=== PATIENT | male | born 1965 | race Caucasian/White ===

== ENCOUNTER 2016-07-08 17:25 | Emergency (ER) | payer BC ==
--- NOTE | 2016-07-08 18:42 | ER Document Report ---
ED Medical Screen (RME) - General Chief Complaint: Dizziness Stated Complaint: DIZZY,BLURRIE VISION Notes: This 50-year-old male patient comes emergency room for episode of dizziness with blurry vision this afternoon and low blood pressure. He does take lisinopril and Lasix. He does landscaping and lawn care work. He states he drank 2 monster drinks this morning. About noon became dizzy with blurry vision so he started drinking lots of water at that point. He went to an urgent care and was found to have a systolic blood pressure in the 80s and was sent to the emergency room. His initial blood pressure in the emergency room is in the low 90s, it later came up to about 110. He has had similar episode in the past and states they usually give me 2 bags of fluids. There is no dizziness at this time. I have greeted and performed a rapid initial assessment of this patient. A comprehensive ED assessment and evaluation of the patient, analysis of test results and completion of the medical decision making process will be conducted by additional ED providers. TRAVEL OUTSIDE OF THE [place] IN LAST 30 DAYS: No - Related Data Allergies/Adverse Reactions: No Known Allergies Allergy (Verified 07/08/16 18:37) Past Medical History - Past Medical History Cardiac Medical History: Reports: Hx Hypertension - on meds Denies: Hx Coronary Artery Disease, Hx Heart Attack Pulmonary Medical History: Reports: Hx Pneumonia - when young Denies: Hx Asthma, Hx Bronchitis, Hx COPD Neurological Medical History: Denies: Hx Cerebrovascular Accident, Hx Seizures Renal/ Medical History: Denies: Hx Peritoneal Dialysis Musculoskeltal Medical History: Reports Hx Arthritis - generalized Psychiatric Medical History: Denies: Hx Depression Past Surgical History: Reports: Hx Orthopedic Surgery - 2 Permnant Compression Fx. 2 Fusion C5-7 - Immunizations Hx Diphtheria, Pertussis, Tetanus Vaccination: Yes Physical Exam - Vital signs Vitals: Temp Pulse Resp BP Pulse Ox 98.4 F 98 20 92/63 L 99 07/08/16 17:33 07/08/16 17:33 07/08/16 17:33 07/08/16 17:33 07/08/16 17:33 Course - Vital Signs Vital signs: Temp Pulse Resp BP Pulse Ox 98.4 F 98 20 112/78 99 07/08/16 17:33 07/08/16 17:33 07/08/16 17:33 07/08/16 17:38 07/08/16 17:33
[2016-07-08] MEDS ORDERED: NORMAL SALINE 1000 ML 2,000 ML IV ONE (19:37)
[2016-07-08 20:04] LABS: ABSOLUTE BASOPHILS # (AUTO) 0.1 10^3/uL (0.0-0.2); ABSOLUTE EOSINOPHILS # (AUTO) 0.2 10^3/uL (0.0-0.6); ABSOLUTE LYMPHOCYTES (AUTO) 3.1 10^3/uL (0.5-4.7); ABSOLUTE NEUT (AUTO) 9.5 10^3/uL (1.7-8.2); BASOPHILS % (AUTO) 0.4 % (0-2); EOSINOPHILS % (AUTO) 1.5 % (0-6); HEMATOCRIT 42.3 % (37.9-51.0); HEMOGLOBIN 14.5 g/dL (13.5-17.0); HGB HCT DIFFERENCE 1.2; LYMPHOCYTES % (AUTO) 22.5 % (13-45); MEAN CORPUSCULAR HEMOGLOBIN 29.1 pg (27.0-33.4); MEAN CORPUSCULAR HGB CONC 34.2 g/dL (32.0-36.0); MEAN CORPUSCULAR VOLUME 85 fl (80-97); MONOCYTES % (AUTO) 7.4 % (3-13); RED BLOOD COUNT 4.97 10^6/uL (4.35-5.55); RED CELL DISTRIBUTION WIDTH 13.9 % (11.5-14.0); SEGMENTED NEUTROPHILS % (AUTO) 68.2 % (42-78); WHITE BLOOD COUNT 13.9 10^3/uL (4.0-10.5)
--- NOTE | 2016-07-08 20:12 | ER Document Report ---
ED General - General Chief Complaint: Dizziness Stated Complaint: DIZZY,BLURR VISION Notes: Patient is a 50-year-old male who presents with concerns of dehydration. He has been working outside all day today and has had minimal fluid intake. States began to feel lightheaded, nauseated and felt like he has in the past when he has become severely dehydrated. He went to an urgent care where his initial systolic blood pressures were noted to be in the 80s and he was subsequently referred to the emergency department for further assessment. Patient states he's had a similar illness multiple times in the past has actually required hospitalization before. Notes that he is feeling much better after drinking several bottles of water since arriving here in the emergency department. Nothing was noted to worsen his symptoms. He did note some associated nausea but denies any chest pain, shortness of breath, headache, neck pain, weakness, numbness. Notes that he did feel somewhat confused prior to fluid resuscitation. TRAVEL OUTSIDE OF THE [place] IN LAST 30 DAYS: No - Related Data Allergies/Adverse Reactions: No Known Allergies Allergy (Verified 07/08/16 18:37) Past Medical History - General Information source: Patient - Social History Smoking Status: Never Smoker Chew tobacco use (# tins/day): No Frequency of alcohol use: None Drug Abuse: None Lives with: Spouse/Significant other Family History: Reviewed & Not Pertinent Patient has suicidal ideation: No Patient has homicidal ideation: No - Past Medical History Cardiac Medical History: Reports: Hx Hypertension - on meds Denies: Hx Coronary Artery Disease, Hx Heart Attack Pulmonary Medical History: Reports: Hx Pneumonia - when young Denies: Hx Asthma, Hx Bronchitis, Hx COPD Neurological Medical History: Denies: Hx Cerebrovascular Accident, Hx Seizures Renal/ Medical History: Denies: Hx Peritoneal Dialysis Musculoskeltal Medical History: Reports Hx Arthritis - generalized Psychiatric Medical History: Denies: Hx Depression Past Surgical History: Reports: Hx Orthopedic Surgery - 2 Permnant Compression Fx. 2 Fusion C5-7 - Immunizations Hx Diphtheria, Pertussis, Tetanus Vaccination: Yes Review of Systems - Review of Systems Notes: Constitutional: Negative for fever. HENT: Negative for sore throat. Eyes: Negative for visual changes. Cardiovascular: Negative for chest pain. Respiratory: Negative for shortness of breath. Gastrointestinal: Negative for abdominal pain, positive for nausea Genitourinary: Negative for dysuria. Musculoskeletal: Negative for back pain. Skin: Negative for rash. Neurological: Negative for headaches, weakness or numbness. 10 point ROS negative except as marked above and in HPI. Physical Exam - Vital signs Vitals: Temp Pulse Resp BP Pulse Ox 98.4 F 98 20 92/63 L 99 07/08/16 17:33 07/08/16 17:33 07/08/16 17:33 07/08/16 17:33 07/08/16 17:33 Interpretation: Hypotensive Notes: PHYSICAL EXAMINATION: GENERAL: Well-appearing, well-nourished and in no acute distress. HEAD: Atraumatic, normocephalic. EYES: Pupils equal round and reactive to light, extraocular movements intact, sclera anicteric, conjunctiva are normal. ENT: nares patent, oropharynx clear without exudates. Moderately dry mucous membranes. NECK: Normal range of motion, supple without lymphadenopathy LUNGS: Breath sounds clear to auscultation bilaterally and equal. No wheezes rales or rhonchi. HEART: Regular rate and rhythm without murmurs ABDOMEN: Soft, nontender, normoactive bowel sounds. No guarding, no rebound. No masses appreciated. EXTREMITIES: Normal range of motion, no pitting or edema. No cyanosis. NEUROLOGICAL: No focal neurological deficits. Moves all extremities spontaneously and on command. PSYCH: Normal mood, normal affect. SKIN: Warm, Dry, normal turgor, no rashes or lesions noted. Course - Re-evaluation Re-evalutation: 07/08/16 20:10 Patient presents with symptoms and exam findings most consistent with dehydration setting of working extensively outside and having poor oral intake. His blood pressures were initially in the 80s systolic at the [facility] prior to him coming to the emergency department. At time of my assessment he has already drank 5 bottles of water his blood pressure and heart rate have normalized. He does continue to have some mildly dry mucous membranes. Physical exam is otherwise unremarkable. He denies any chest pain, shortness of breath, abdominal pain and vomiting, or altered mental status suggest acute alternative life-threatening diagnosis including ACS, pulmonary embolus, aortic dissection, subarachnoid hemorrhage, abdominal aneurysm rupture or dissection, or acute intra-abdominal pathology. Will obtain basic laboratories to evaluate for rhabdomyolysis and acute kidney injury. Also provide 2 L of normal saline. If patient continues to appear well and labs are overall within normal limits will plan for discharge home. 07/08/16 20:53 Patient's laboratories are unremarkable. He has continued to tolerate oral intake without difficulty.At this time will discharge with return precautions and follow-up recommendations. Verbal discharge instructions given a the bedside and opportunity for questions given. Medication warnings reviewed. Patient is in agreement with this plan and has verbalized understanding of return precautions and the need for primary care follow-up in the next 24-72 hours. - Vital Signs Vital signs: Temp Pulse Resp BP Pulse Ox 98.4 F 98 11 L 85/62 L 92 07/08/16 17:33 07/08/16 17:33 07/08/16 19:53 07/08/16 21:01 07/08/16 21:01 - Laboratory Result Diagrams: 07/08/16 19:41 07/08/16 19:41 Laboratory results interpreted by me: 07/08/16 07/08/16 19:41 19:41 WBC 13.9 H Absolute Neutrophils 9.5 H Sodium 135.9 L Chloride 93 L BUN 21 H AST 16 L Discharge - Discharge Clinical Impression: Dehydration, Orthostatic hypotension Condition: Good Disposition: HOME, SELF-CARE Additional Instructions: Please be sure to drink plenty of fluids when working outside. Your labs today did not show any concerning findings. Return for any new or concerning symptoms including chest pain, shortness of breath, passing out, or any other symptoms that are worrisome to you. Referrals: TURNER EARL, [Primary Care Provider] - Follow up as needed
[2016-07-08 20:25] LABS: ALANINE AMINOTRANSFERASE 27 U/L (21-72); ALBUMIN 4.7 g/dL (3.5-5.0); ALKALINE PHOSPHATASE 95 U/L (38-126); ANION GAP 14 (5-19); ASPARTATE AMINO TRANSFERASE 16 U/L (17-59); BILIRUBIN,DIRECT 0.3 mg/dL (0.0-0.4); BLOOD UREA NITROGEN 21 mg/dL (7-20); CALCIUM 9.7 mg/dL (8.4-10.2); CARBON DIOXIDE 29 mmol/L (22-30); CHLORIDE 93 mmol/L (98-107); CREATINE KINASE 68 U/L (55-170); CREATININE RESULT 1.13 mg/dL (0.52-1.25); GLUCOSE 91 mg/dL (75-110); POTASSIUM 4.8 mmol/L (3.6-5.0); SODIUM 135.9 mmol/L (137-145); TOTAL PROTEIN 7.2 g/dL (6.3-8.2)
[2016-07-08 21:04] VITALS: BP 85/62
== END 2016-07-08 21:14 | disposition home or self-care (01) ==
LOC: ER 17:25
DX: E86.0 Dehydration (principal); I95.1 Orthostatic hypotension; R42 Dizziness and giddiness; R11.0 Nausea; I10 Essential (primary) hypertension
CPT/HCPCS: 99284; 96360; 36415; 82550; 85025; 80053; J7030

== ENCOUNTER 2017-09-13 16:54 | Emergency (ER) | payer BC ==
[2017-09-13] MEDS ORDERED: CLINDAMYCIN HCL 150 MG CAPSULE PO ONE (17:35)
--- NOTE | 2017-09-13 17:41 | ER Document Report ---
ED General - General Chief Complaint: Leg Swelling Stated Complaint: LEG PAIN Time Seen by Provider: 09/13/17 17:23 Notes: 52-year-old male here with complaints of ongoing bilateral leg swelling redness and pain for the past 2-3 weeks. Patient states that when the symptoms initially started, he went to his PCP who ordered blood work to check his kidneys and an ultrasound of both legs to evaluate for blood clots. He was told that the blood work and the ultrasound did not show any findings related to his leg swelling but he was discharged on an antibiotic that he took twice daily. Patient states his symptoms improved with the antibiotic however in the days after finishing the antibiotic the symptoms return. He has not had any fevers or chills. He was told that he may want to come here for evaluation. TRAVEL OUTSIDE OF THE [place] IN LAST 30 DAYS: No - Related Data Allergies/Adverse Reactions: No Known Allergies Allergy (Verified 07/08/16 18:37) Past Medical History - Social History Smoking Status: Unknown if Ever Smoked Family History: Reviewed & Not Pertinent - Past Medical History Cardiac Medical History: Reports: Hx Hypertension - on meds Denies: Hx Coronary Artery Disease, Hx Heart Attack Pulmonary Medical History: Reports: Hx Pneumonia - when young Denies: Hx Asthma, Hx Bronchitis, Hx COPD Neurological Medical History: Denies: Hx Cerebrovascular Accident, Hx Seizures Renal/ Medical History: Denies: Hx Peritoneal Dialysis Musculoskeltal Medical History: Reports Hx Arthritis - generalized Psychiatric Medical History: Denies: Hx Depression Past Surgical History: Reports: Hx Orthopedic Surgery - 2 Permnant Compression Fx. 2 Fusion C5-7 - Immunizations Hx Diphtheria, Pertussis, Tetanus Vaccination: Yes Review of Systems - Review of Systems Notes: See history of present illness for pertinent positive review of systems; otherwise all review of systems have been reviewed and are negative Physical Exam - Vital signs Vitals: Temp Pulse Resp BP Pulse Ox 98.8 F 91 18 145/70 H 97 09/13/17 16:59 09/13/17 16:59 09/13/17 16:59 09/13/17 16:59 09/13/17 16:59 - Notes Notes: PHYSICAL EXAMINATION: GENERAL: Well-appearing and in no acute distress. HEAD: Atraumatic, normocephalic. EYES: Pupils equal round and reactive to light, extraocular movements intact, sclera anicteric, conjunctiva are normal. ENT: nares patent, oropharynx clear without exudates. Moist mucous membranes. NECK: Normal range of motion, supple without lymphadenopathy LUNGS: CTAB and equal. No wheezes rales or rhonchi. HEART: Regular rate and rhythm without murmurs ABDOMEN: Soft, no tenderness. No facial grimacing/wincing upon palpation. No guarding, no rebound. EXTREMITIES: Normal range of motion, mild 1+ pitting edema and TTP of BLEs, left greater than right, with mild erythema (left greater than right) but no induration fluctuance drainage NEUROLOGICAL: Cranial nerves grossly intact. Normal sensory/motor exams. PSYCH: Normal mood, normal affect. SKIN: Warm, Dry, normal turgor, no rashes or lesions noted Course - Re-evaluation Re-evalutation: 09/13/17 17:40 MEDICAL DECISION MAKING: Concern for cellulitis versus DVT versus kidney failure Patient states that his doctor called over here to have him evaluated I have checked with the other physicians and charge nurse, no one has called regarding this patient I have offered the patient a diagnostic workup including imaging and blood work however he declines He cites his previous medical data and that he does not want to incur any more expense His symptoms appear to be somewhat cellulitic so I will treat him with clindamycin Instructed him to return at anytime if he changes his mind regarding diagnostic workup Patient understands and agrees to the plan of care - Vital Signs Vital signs: Temp Pulse Resp BP Pulse Ox 98.0 F 85 18 128/77 H 98 09/13/17 17:45 09/13/17 17:45 09/13/17 17:45 09/13/17 17:45 09/13/17 17:45 Discharge - Discharge Clinical Impression: Localized swelling of both lower legs Condition: Good Disposition: HOME, SELF-CARE Additional Instructions: You were seen in the emergency department at [facility]. You declined blood work and diagnostic workup and instead requested a prescription for antibiotics. Finish the antibiotics and do not skip any doses. Please followup with your primary physician in the next few days for further management /evaluation. Please return to the emergency department for worsening of symptoms or any symptom that you deem to be concerning or life-threatening. Thank you for allowing us to be part of your care. Prescriptions: Clindamycin HCl 300 mg PO TID #21 capsule Referrals: CYDNEY FLORES PA-C [ALLIED HEALTH PROFESSIONAL] - Follow up as needed
[2017-09-13 17:47] VITALS: BP 128/77
== END 2017-09-13 17:58 | disposition home or self-care (01) ==
LOC: ER 16:54
DX: M79.89 Other specified soft tissue disorders (principal); M79.605 Pain in left leg; M79.604 Pain in right leg; I10 Essential (primary) hypertension
CPT/HCPCS: 99283